=== PATIENT | female | born 1985 | race African-American/Black ===

== ENCOUNTER 2022-06-26 04:03 | Emergency (ER) | payer MEDICAID ==
[~2022-06-26] VITALS: Ht 167.6 cm; Wt 69.0 kg
[2022-06-26 04:37] VITALS: BP 121/68
== END 2022-06-26 05:56 | disposition left against medical advice (07) ==
LOC: ER 04:03
DX: Z53.21 Procedure and treatment not carried out due to patient leaving prior to being seen by health care provider (principal)